=== PATIENT | female | born 1965 | race Hispanic/Latino ===

== ENCOUNTER 2018-01-27 10:45 | Outpatient (CLI) | payer BC | END 2018-01-27 10:46 | disposition home or self-care (01) | LOC: BICMAMMO 10:45 | PROVIDERS: ATTEND Obstetrics & Gynecology | DX: Z12.31 Encounter for screening mammogram for malignant neoplasm of breast (principal) | CPT/HCPCS: 77063; 77067 ==

== ENCOUNTER 2018-07-20 08:19 | Outpatient (CLI) | payer BC ==
--- NOTE | 2018-07-20 11:53 | CT ---
CT ABDOMEN AND PELVIS WITH AND WITHOUT IV CONTRAST: Date: 07/20/18 HISTORY: Microhematuria. FINDINGS: There are mild dependent changes in the lung bases. The spleen, pancreas, and adrenal glands are norm al. There is mild fatty infiltration of the liver. The patient is post cholecystectomy. No free air, free fluid, or lymphadenopathy is seen in the abdomen or pelvis. Uterus and ovaries are present. There is a nonobstructing 3.0 mm calculus in the left kidney. No calculi are seen in the right kidney , either ureter, or the urinary bladder. No hydroureteronephrosis is seen on either side. Postcontras t images demonstrate no evidence of solid enhancing renal mass. There is normal contrast excretion in to the ureters and the urinary bladder. There is colonic diverticulosis. No evidence of aneurysmal dilatation of the abdominal aorta is seen. There are mild degenerative changes in the spine. There is a 5.0 mm low density lesion in the superi or pole of the right kidney and a 6.0 mm low density lesion in the left mid kidney, likely cyst. IMPRESSION: 1. 3.0 mm nonobstructing left renal calculus. 2. Probable small renal cyst. 3. Fatty liver. 4. Colonic diverticulosis. POS: [facility]
[2018-07-20] MEDS ORDERED: ISOVUE-370 76%-LOCM 1 ML ONE (11:59)
== END 2018-07-20 08:20 | disposition home or self-care (01) ==
LOC: BICCT 08:19
PROVIDERS: ATTEND Urology
DX: R31.29 Other microscopic hematuria (principal); N20.0 Calculus of kidney; K76.0 Fatty (change of) liver, not elsewhere classified; K57.30 Diverticulosis of large intestine without perforation or abscess without bleeding
CPT/HCPCS: 74178

== ENCOUNTER 2019-07-01 12:56 | Outpatient (CLI) | payer BC ==
--- NOTE | 2019-07-01 15:57 | MMO ---
Bilateral MAMMO Bilat Screen [facility]. CLINICAL HISTORY: Patient is 53 years old and is seen for screening. The patient has no family history of breast cancer. The patient has no personal history of cancer. VIEWS: The views performed were: bilateral craniocaudal with tomosynthesis and bilateral mediolateral oblique with tomosynthesis. FILMS COMPARED: The present examination has been compared to prior imaging studies performed at [facility] on 11/02/2014, 01/01/2016, 01/13/2017 and 01/27/2018. This study has been interpreted with the assistance of computer-aided detection. MAMMOGRAM FINDINGS: There are scattered fibroglandular densities. There are no suspicious masses, suspicious calcifications, or new areas of architectural distortion. IMPRESSION: THERE IS NO MAMMOGRAPHIC EVIDENCE OF MALIGNANCY. A ROUTINE FOLLOW-UP MAMMOGRAM IN 1 YEAR IS RECOMMENDED. THE RESULTS OF THIS EXAM WERE SENT TO THE PATIENT. ACR BI-RADS Category 1 - Negative MAMMOGRAPHY NOTE: 1. A negative mammogram report should not delay a biopsy if a dominant of clinically suspicious mass is present. 2. Approximately 10% to 15% of breast cancers are not detected by mammography. 3. Adenosis and dense breasts may obscure an underlying neoplasm. Reported by: DAVID WOODWARD MD Electonically Signed: [id number]
== END 2019-07-01 12:57 | disposition home or self-care (01) ==
LOC: BICMAMMO 12:56
PROVIDERS: ATTEND Family Medicine
DX: Z12.31 Encounter for screening mammogram for malignant neoplasm of breast (principal)
CPT/HCPCS: 77063; 77067

== ENCOUNTER 2019-08-26 12:26 | Outpatient (CLI) | payer BC ==
--- NOTE | 2019-08-26 13:17 | RAD ---
KUB: 08/26/2019 COMPARISON: None HISTORY: Microhematuria, nephrolithiasis, renal cyst FINDINGS: Clips in the right upper quadrant suggest prior cholecystectomy. There is a questionable pu nctate calcification in the left upper quadrant which may be associated with the left renal lower pole measuring in the 2-3 mm range. There is a postoperative clip in the right hemipelvis. The bowel gas pattern appears nonobstructed. IMPRESSION: Punctate calcification overlies expected location of lower pole left kidney as detailed a bruce.
--- NOTE | 2019-08-26 13:33 | ULT ---
BILATERAL RENAL ULTRASOUND: HISTORY: Microhematuria. Renal calculi. FINDINGS: The right kidney measures 13.5 cm in length and the left kidney measures 11 cm in length. There is a 7 x 4 x 5 mm calculus in the left mid kidney. There is mild hydronephrosis of the left kidney. The ri ght kidney is normal. The pre-void bladder volume measures 325 mL. The post-void residual is 22 mL. IMPRESSION: 1. Left renal calculus. 2. Mild left hydronephrosis. POS: [facility]
== END 2019-08-26 12:27 | disposition home or self-care (01) ==
LOC: BICULT 12:26
PROVIDERS: ATTEND Urology
DX: N20.0 Calculus of kidney (principal); N28.1 Cyst of kidney, acquired; R31.29 Other microscopic hematuria; N28.89 Other specified disorders of kidney and ureter
CPT/HCPCS: 74018; 76770; 81001; 87086

== ENCOUNTER 2019-10-08 15:27 | Outpatient (CLI) | payer BC ==
--- NOTE | 2019-10-08 16:18 | CT ---
CT Stone Protocol 10/08/2019 12:00 AM HISTORY: Nephrolithiasis and renal cyst. COMPARISON: 07/20/2018 Technique: Multiple contiguous axial CT images are obtained through the abdomen and pelvis without IV contrast. Coronal reformats are provided. FINDINGS: This examination is limited for the evaluation of solid organs and vascular structures due to the lac k of intravenous contrast. Lower Chest: Lung bases are clear. Abdomen: Liver: Grossly normal non-enhanced CT appearance. Gallbladder: Surgically absent. Pancreas: Grossly normal nonenhanced CT appearance. Spleen: Grossly normal nonenhanced CT appearance. Adrenals: Grossly normal nonenhanced CT appearance. Kidneys: A nonobstructing inferior pole left renal calculus is again seen. No right renal calculus is seen, and there is no hydronephrosis. Ureters: No ureteral calculus is seen.. Pelvis: Urinary bladder: within normal limits. Reproductive Organs: Normal nonenhanced CT appearance. Surgical clip is seen adjacent to the right as pect of the fundus the uterus. Lymph Nodes: No enlarged lymph nodes. Bowel: Colonic diverticulosis is present. Loops of small bowel are normal in caliber. Appendix: The appendix is normal in caliber. Peritoneum: No free fluid, free air, or fluid collection. Retroperitoneum: within normal limits. Vessels: The abdominal aorta is normal in caliber.. Abdominal Wall: within normal limits. Bones: within normal limits. IMPRESSION: 1. Stable nonobstructing left renal calculus. 2. Postcholecystectomy changes. 3. Colonic diverticulosis.
== END 2019-10-08 15:28 | disposition home or self-care (01) ==
LOC: BICCT 15:27
PROVIDERS: ATTEND Urology
DX: N20.0 Calculus of kidney (principal); N28.1 Cyst of kidney, acquired; K57.30 Diverticulosis of large intestine without perforation or abscess without bleeding; Z90.49 Acquired absence of other specified parts of digestive tract
CPT/HCPCS: 74176

== ENCOUNTER 2020-07-20 10:35 | Outpatient (CLI) | payer BC ==
--- NOTE | 2020-07-20 11:42 | MMO ---
Bilateral MAMMO Bilat Screen [facility]. CLINICAL HISTORY: Patient is 54 years old and is seen for screening. The patient has no family history of breast cancer. The patient has no personal history of cancer. VIEWS: The views performed were: bilateral craniocaudal with tomosynthesis and bilateral mediolateral oblique with tomosynthesis. FILMS COMPARED: The present examination has been compared to prior imaging studies performed at [facility] on 01/01/2016, 01/13/2017, 01/27/2018 and 07/01/2019. This study has been interpreted with the assistance of computer-aided detection. MAMMOGRAM FINDINGS: The breasts are heterogeneously dense, which could obscure a lesion on mammography. There are no suspicious masses, suspicious calcifications, or new areas of architectural distortion. IMPRESSION: THERE IS NO MAMMOGRAPHIC EVIDENCE OF MALIGNANCY. A ROUTINE FOLLOW-UP MAMMOGRAM IN 1 YEAR IS RECOMMENDED. THE RESULTS OF THIS EXAM WERE SENT TO THE PATIENT. ACR BI-RADS Category 1 - Negative MAMMOGRAPHY NOTE: 1. A negative mammogram report should not delay a biopsy if a dominant of clinically suspicious mass is present. 2. Approximately 10% to 15% of breast cancers are not detected by mammography. 3. Adenosis and dense breasts may obscure an underlying neoplasm. Reported by: GIOVANNA SEPULVEDA MD Electonically Signed: [id number]
== END 2020-07-20 10:36 | disposition home or self-care (01) ==
LOC: BICMAMMO 10:35
PROVIDERS: ATTEND Family Medicine
DX: Z12.31 Encounter for screening mammogram for malignant neoplasm of breast (principal)
CPT/HCPCS: 77063; 77067